=== PATIENT | male | born 1985 | race Caucasian/White ===

== ENCOUNTER 2022-03-16 18:25 | Emergency (ER) | payer OTHER ==
[~2022-03-16] VITALS: Ht 182.9 cm; Wt 68.0 kg
[~2022-03-16 18:25] MED LIST: GABA600T11 PO
[2022-03-16 19:15] VITALS: BP 103/61
--- NOTE | 2022-03-16 21:03 | NUR ---
PT TAKEN TO BED 6
--- NOTE | 2022-03-16 21:14 | NUR ---
37/M BIB SELF C/C HEADACHE S/P HEAD INJURY X2DAYS. PER PATIENT HE HAS BEEN NAUSEATED WITH LIGHT SENSITIVITY. PATIENT DENIES TAKING PAIN PILLS TODAY PRIOR TO ARRIVAL, BUT HE TOOK ADVIL YESTERDAY WITH RELIEF. PATIENT HAS SWELLING AND DRY BLOOD FOREHEAD BTW THE EYES. DENIES LOC. PATIENT IS AAOX4 AND AMBULATORY. PATIENT RR APPEAR TO BE EVEN AND UNLABORED. DOESNT APPEAR TO BE IN DISTRESS. PATIENT PLACED IN GOWN AND MONITOR. SIDE RAIL UP FOR SAFETY X1. ALL NEEDS MET DENIES PMHX, RX NKA
--- NOTE | 2022-03-16 21:32 | NUR ---
MD GUERRA AT BEDSIDE
[2022-03-16] MEDS ORDERED: HYDROcodone/APAP 5/325 MG 1 TAB TAB PO ONE (22:10)
--- NOTE | 2022-03-16 22:25 | NUR ---
PATIENT TAKEN TO CT VIA W/C
--- NOTE | 2022-03-16 22:25 | NUR ---
PATIETN MEDICATED PER ORDERS
--- NOTE | 2022-03-16 22:44 | NUR ---
PATIENT C/O 3 LESIONS TO THE RIGHT ARM AND LEFT ANKLE. MD AWARE AND ASSESSING.
--- NOTE | 2022-03-17 01:45 | NUR ---
CHRISTIAN WALKED OUTSIDE TO TALK TO .
--- NOTE | 2022-03-17 01:50 | NUR ---
PATIENT RETURNED TO GRAB LAPTOP AND WENT OUTSIDE TO ONCE AGAIN
--- NOTE | 2022-03-17 02:22 | NUR ---
IV ESTABLISHED 20G RIGHT AC
[2022-03-17] MEDS ORDERED: IBUP-1878 PO (03:44)
[2022-03-17] MEDS ORDERED: HYDROcodone/APAP 5/325 MG 1 TAB TAB PO ONE (03:45)
--- NOTE | 2022-03-17 03:46 | NUR ---
PATIENT C/O FACIAL PAIN 02/21. MD AWARE.
--- NOTE | 2022-03-17 03:48 | NUR ---
IV removed, catheter intact and site benign. Applied folded 4x4 gauze and tape to stop bleeding.
--- NOTE | 2022-03-17 03:48 | NUR ---
PATIENT MEDICATED PER ORDERS. TOLERATED WELL
[2022-03-17 04:02] VITALS: BP 100/58
--- NOTE | 2022-03-17 04:02 | NUR ---
Patient discharged with v/s stable. Written and verbal after care instructions given and explained. Patient verbalized understanding. Ambulatory with steady gait. All questions addressed prior to discharge. Advised to follow up with PMD.
--- NOTE | 2022-03-17 04:15 | NUR ---
The patient's care was reviewed and supervised by Lucila Jung RN, RN.
== END 2022-03-17 04:02 | disposition home or self-care (01) ==
LOC: MED 18:25
DX: S02.0XXA Fracture of vault of skull, initial encounter for closed fracture (principal); Z20.822 Contact with and (suspected) exposure to COVID-19; Z79.899 Other long term (current) drug therapy; W22.8XXA Striking against or struck by other objects, initial encounter; Y93.89 Activity, other specified; Y92.89 Other specified places as the place of occurrence of the external cause; Y99.8 Other external cause status
CPT/HCPCS: 70450; 70486; 90471; 90715; 99284